=== PATIENT | female | born 1970 | race African-American/Black ===

== ENCOUNTER 2018-11-16 08:34 | Day surgery (SDC) | payer OTHER ==
[2018-11-15 16:27] VITALS: BMI 24.3
[2018-11-16] MEDS ORDERED: HYDROmorphone *PCA* 10MG/50ML DISP.SYRIN PCA ONE (14:01)
[2018-11-16] MEDS ORDERED: ONDANSETRON 4 MG/2 ML VIAL ONE (14:26)
[2018-11-16] MEDS: ONDANSETRON 4 MG/2 ML VIAL IVPUSH PRN (14:28)
[2018-11-16] MEDS ORDERED: SODIUM CHLORIDE 1,000 ML IV SCH ×2 (16:30→19:03)
[2018-11-16] MEDS ORDERED: HYDROmorphone *PCA* 10MG/50ML DISP.SYRIN PCA SCH (16:30)
[2018-11-16] MEDS ORDERED: amLODIPine BESYLATE 5 MG TABLET (FP) PO ONE ×2 (19:03→20:30)
--- NOTE | 2018-11-16 19:28 | RAPID ---
Physical Examination Vital Signs: Vital Signs Temperature 97.8 F 11/16/18 18:30 Pulse Rate 84 11/16/18 18:30 Respiratory Rate 20 11/16/18 18:30 Blood Pressure 174/120 H 11/16/18 18:30 O2 Sat by Pulse Oximetry (%) 100 11/16/18 18:30 Constitutional: Yes: Well Nourished Eyes: Yes: WNL HENT: Yes: WNL Neck: Yes: WNL Cardiovascular: Yes: WNL, Regular Rate and Rhythm Respiratory: Yes: WNL Gastrointestinal: Yes: WNL ...Rectal Exam: Yes: Deferred Breast(s): Yes: WNL Musculoskeletal: Yes: WNL Extremities: Yes: WNL Integumentary: Yes: WNL Wound/Incision: Yes: Clean/Dry Neurological: Yes: WNL ...Motor Strength: WNL Psychiatric: Yes: WNL Rapid Response - Rapid Response Assessment: Patient is a 45 year old female with a significant pat medical history of ectopic (2000) who is POD #0 of bilateral uterine arteries embolization and bilateral urine and right common femoral arteriogram. Per surgical note, patient tolerate procedure well and will be monitored overnight for pain control with a dilaudid die designer pump and anti emetics. Post procedure, patient experienced asymptomatic hypertension (bp 180/110) and a rapid response was called to further evaluate. plan: Hypertension, uncontrolled She denies headaches, visual defect, nausea or vomiting. no chest pain or shortness of breath. will order - Norvasc 5mg x 1 given - monitor bp q4 - decrease ivf to a KVO rate @ 30cc/hr since hypertensive - EKG now Monitor BP, may need uptitration of bp medications.
--- NOTE | 2018-11-16 19:28 | PN ---
Physical Exam: SUBJECTIVE: Patient seen and examined at the bedside. She denies headaches, denies any visual defects, no numbness or facial tingling. no nausea/vomiting. denies chest pain or shortness of breath. Tells me that she has been told that she has borderline hypertension, but not taking any medications at home. OBJECTIVE: Patient s/p fibroid embolization today. maintain on bed rest x 3 hours no bleeding noted on surgical pad. bp elevated 180s/110 with heart rate, and a rapid response called by primary RN. Repeat BP shows 168/100. patient remains asymptomatic. will give Norvasc 5mg times one and monitor response see rapid response note Vital Signs Period Temp Pulse Resp BP Sys/Bashir Pulse Ox Last 24 Hr 97.8 F-98.2 F 75-85 11-20 102-185/72-120 100-100 GENERAL: The patient is awake, alert, and fully oriented, in no acute distress. HEAD: Normal with no signs of trauma. EYES: PERRL, extraocular movements intact, sclera anicteric, conjunctiva clear. No ptosis. ENT: Ears normal, nares patent, oropharynx clear without exudates, moist mucous membranes. NECK: Trachea midline, full range of motion, supple. LUNGS: Breath sounds equal, clear to auscultation bilaterally, no wheezes, no crackles, no accessory muscle use. HEART: Regular rate and rhythm ABDOMEN: Soft, nontender, nondistended, normoactive bowel sounds, no guarding, no rebound, no hepatosplenomegaly, no masses. EXTREMITIES: no edema. NEUROLOGICAL: Normal speech, gait not observed. PSYCH: Normal mood, normal affect. 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 Per surgical note, patient tolerate procedure well and will be monitored overnight for pain control with a dilaudid consulting practice director pump and anti emetics. Post procedure, patient experienced asymptomatic hypertension and a rapid response was called to further evaluate. Surgery: POD #0 Bilateral uterine arteries embolization and bilateral urine and right common femoral arteriogram plan: - strict bed rest 3 hours - monitor surgical site - monitor surgical pads for signs of bleeding - remove mcdaniel once patient ambulatory - bowel regimen - pain management on dilaudid consulting practice director - transition to oral pain meds in a.m. Hypertension, uncontrolled She denies headaches, visual defect, nausea or vomiting - Norvasc 5mg x 1 given - monitor bp q4 -decrease ivf to a KVO rate @ 30cc/hr since hypertensive - EKG fen ivf 30cc/kvo while on dilaudid consulting practice director monitor electrolytes in a.m. regular diet prophy SCDs incentive spriometer early ambulation. full code Visit type - Emergency Visit Emergency Visit: No - New Patient This patient is new to me today: Yes Date on this admission: 11/16/18 - Critical Care Critical Care patient: No - Discharge Referral Referred to [facility] Med P.C.: No
[2018-11-17] MEDS ORDERED: amLODIPine BESYLATE 5 MG TABLET (FP) PO ONE (02:03)
[2018-11-17] MEDS ORDERED: ACETAMINOPHEN 325 MG TABLET (FP) PO ONE (04:15)
[2018-11-17] MEDS ORDERED: oxyCODONE HCL 5 MG TABLET PO ONE (04:15)
[2018-11-17 08:22] LABS: BASO % 0.2 % (0-2.0); EOS % 0.1 % (0-4.5); HEMATOCRIT 35.2 % (32.4-45.2); HEMOGLOBIN 11.3 GM/dL (10.7-15.3); LYMPH % 9.2 % (8-40); MCH 23.5 pg (25.7-33.7); MCHC 32.1 g/dl (32.0-36.0); MEAN CELL VOLUME 73.3 fl (80-96); MEAN PLT VOLUME 7.8 fl (7.5-11.1); MONO % 5.7 % (3.8-10.2); NEUT % 84.8 % (42.8-82.8); PLATELET COUNT 283 K/MM3 (134-434); RBC 4.81 M/mm3 (3.60-5.2); RDW 18.2 % (11.6-15.6); WHITE BLOOD COUNT 11.8 K/mm3 (4.0-10.0)
[2018-11-17] MEDS ORDERED: oxyCODONE HCL 5 MG TABLET PO PRN (08:43)
[2018-11-17 08:50] LABS: ALBUMIN 3.1 g/dl (3.4-5.0); ALK PHOS 86 U/L (45-117); ANION GAP 5 MMOL/L (8-16); BILIRUBIN,TOTAL 0.4 mg/dL (0.2-1); BLOOD UREA NITROGEN 9 mg/dL (7-18); CALCIUM 8.7 mg/dL (8.5-10.1); CHLORIDE 103 mmol/L (98-107); CO2 26 mmol/L (21-32); CREATININE 0.5 mg/dL (0.55-1.3); GLUCOSE,RANDOM 98 mg/dL (74-106); SGOT/AST 16 U/L (15-37); SGPT/ALT 12 U/L (13-61); SODIUM 135 mmol/L (136-145)
--- NOTE | 2018-11-17 09:02 | PN ---
Physical Exam: SUBJECTIVE: Patient seen and examined at the bedside. having some lower abdominal cramps, mild nausea this morning. Denies any headaches or visual defects. denies chest pain or shortness of breath. OBJECTIVE: Dr. Mir called this a.m., awaiting call back. in the meantime, made appt for patient to be seen at Dr. Mir office for a BP check. On November 30, at 2pm. Dr. Mir office will call her and try to get her an earlier appointment if there are any cancellations, and will attempt to see her earlier than November 30. ekg normal sinus rhythm, unchanged from previous bp noted to be elevated on prior admissions to [facility]. patient on no home medications for BP. Vital Signs Period Temp Pulse Resp BP Sys/Bashir Pulse Ox Last 24 Hr 97.8 F-98.9 F 73-89 10-20 102-185/76-120 96-100 GENERAL: The patient is awake, alert, and fully oriented, in no acute distress. HEAD: Normal with no signs of trauma. EYES: PERRL, extraocular movements intact, sclera anicteric, conjunctiva clear. No ptosis. ENT: Ears normal, nares patent, oropharynx clear without exudates, moist mucous membranes. NECK: Trachea midline, full range of motion, supple. LUNGS: Breath sounds equal, clear to auscultation bilaterally, no wheezes HEART: Regular rate and rhythm ABDOMEN: soft, non tender. non distended. EXTREMITIES: right groin dressing, dry and intact NEUROLOGICAL: Normal speech, gait not observed. PSYCH: Normal mood, normal affect. Laboratory Results - last 24 hr 11/16/18 11/17/18 11/17/18 08:49 07:30 07:30 WBC 11.8 H RBC 4.81 Hgb 11.3 Hct 35.2 D MCV 73.3 L MCH 23.5 L MCHC 32.1 RDW 18.2 H Plt Count 283 D MPV 7.8 Absolute Neuts (auto) 10.0 H Neutrophils % 84.8 H Lymphocytes % 9.2 D Monocytes % 5.7 Eosinophils % 0.1 Basophils % 0.2 Nucleated RBC % 0 Sodium 135 L Potassium 4.0 Chloride 103 Carbon Dioxide 26 Anion Gap 5 L BUN 9 Creatinine 0.5 L Creat Clearance w eGFR 132.83 Random Glucose 98 Calcium 8.7 Total Bilirubin 0.4 AST 16 ALT 12 L Alkaline Phosphatase 86 Total Protein 8.0 Albumin 3.1 L Urine HCG, Qual Negative Active Medications Generic Name Dose Route Start Last Admin Trade Name Willie PRN Reason Stop Dose Admin Acetaminophen 650 mg 11/17/18 07:45 Tylenol - PO Q4H PRN PAIN LEVEL 6-10 Amlodipine Besylate 10 mg 11/17/18 10:00 Norvasc - PO DAILY KATHY Diphenhydramine HCl 12.5 mg 11/16/18 16:29 Benadryl Injection - IVPUSH Q4H PRN PRURITUS Ondansetron HCl 4 mg 11/16/18 16:29 11/16/18 14:28 Zofran Injection IVPUSH 4 mg Q4H PRN Administration NAUSEA AND/OR VOMITING Oxycodone HCl 5 mg 11/17/18 08:43 Roxicodone - PO 11/18/18 08:42 Q4H PRN PAIN LEVEL 7 - 10 ASSESSMENT/PLAN: Patient is a 45 year old female with a significant pat medical history of ectopic (2000) who is POD #1 of bilateral uterine arteries embolization and bilateral uterine and right common femoral arteriogram. Per surgical note, patient tolerate procedure well and will be monitored for pain control. Post procedure, patient experienced asymptomatic hypertension and a rapid response was called to further evaluate. On review of her previous medical records, patient has had elevated BP in past visits to [facility]. She is not on any anti-hypertensives. 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 On no home medications. BP not yet at goal, increased Norvasc to 10mg from 5mg Monitor BP q 4 Stop IVF. EKG unchanged fen regular diet prophy SCDs incentive spriometer early ambulation. discharge patient later today if BP better controlled. full code Visit type - Emergency Visit Emergency Visit: No - New Patient This patient is new to me today: No - Critical Care Critical Care patient: No - Discharge Referral Referred to [facility] Med P.C.: No
[2018-11-17] MEDS: ACETAMINOPHEN 325 MG TABLET (FP) PO PRN ×3 (09:05→19:09)
[2018-11-17] MEDS ORDERED: amLODIPine BESYLATE 10 MG TABLET (FP) PO SCH (10:00)
[2018-11-17] MEDS ORDERED: amLODIPine BESYLATE 5 MG TABLET (FP) PO SCH (10:00)
[2018-11-17] MEDS ORDERED: PCA PUMP KEY 1 EACH EACH ONE (10:37)
[2018-11-17] MEDS: ONDANSETRON 4 MG/2 ML VIAL IVPUSH PRN (11:11)
[2018-11-17] MEDS ORDERED: LORazepam 0.5 MG TABLET PO ONE (11:33)
[2018-11-17] MEDS ORDERED: LISINOPRIL 10 MG TABLET (FP) PO ONE (13:01)
[2018-11-17 15:24] VITALS: TEMP 98.4
[2018-11-17 17:36] VITALS: BP 163/87; PULSE 105
--- NOTE | 2018-11-17 17:36 | DS ---
Physical Exam: SUBJECTIVE: Patient seen and examined at the bedside. BP is improving, she will have a VNS services to her home to monitor her BP, her new medications have been called into [facility]. In review of her old [facility] records, she has had episodes of hypertensioin in the past. She will be sent home on amlodopine 10mg and lisinopril 10mg with close follow up with her PCP. Appointment has been made for her. She will have VNS services for BP monitoring. OBJECTIVE: Vital Signs Period Temp Pulse Resp BP Sys/Bashir Pulse Ox Last 24 Hr 97.8 F-98.9 F 76-105 11-20 149-179/89-120 97-100 PHYSICAL EXAM GENERAL: The patient is awake, alert, and fully oriented, in no acute distress. HEAD: Normal with no signs of trauma. EYES: PERRL, extraocular movements intact, sclera anicteric, conjunctiva clear. No ptosis. ENT: Ears normal, nares patent, oropharynx clear without exudates, moist mucous membranes. NECK: Trachea midline, full range of motion, supple. LUNGS: Breath sounds equal, clear to auscultation bilaterally, no wheezes HEART: Regular rate and rhythm ABDOMEN: soft, non tender. non distended. EXTREMITIES: right groin dressing, dry and intact NEUROLOGICAL: Normal speech, gait not observed. PSYCH: Normal mood, normal affect. Laboratory Results - last 24 hr LABS Laboratory Results - last 24 hr 11/17/18 11/17/18 07:30 07:30 WBC 11.8 H RBC 4.81 Hgb 11.3 Hct 35.2 D MCV 73.3 L MCH 23.5 L MCHC 32.1 RDW 18.2 H Plt Count 283 D MPV 7.8 Absolute Neuts (auto) 10.0 H Neutrophils % 84.8 H Lymphocytes % 9.2 D Monocytes % 5.7 Eosinophils % 0.1 Basophils % 0.2 Nucleated RBC % 0 Sodium 135 L Potassium 4.0 Chloride 103 Carbon Dioxide 26 Anion Gap 5 L BUN 9 Creatinine 0.5 L Creat Clearance w eGFR 132.83 Random Glucose 98 Calcium 8.7 Total Bilirubin 0.4 AST 16 ALT 12 L Alkaline Phosphatase 86 Total Protein 8.0 Albumin 3.1 L HOSPITAL COURSE: Date of Admission:11/16/18 Date of Discharge: 05/03/19 Patient is a 45 year old female with a significant pat medical history of ectopic (2000) who is POD #1 of bilateral uterine arteries embolization and bilateral uterine and right common femoral arteriogram. Per surgical note, patient tolerate procedure well and will be monitored for pain control. Post procedure, patient experienced asymptomatic hypertension and a rapid response was called to further evaluate. On review of her previous medical records, patient has had elevated BP in past visits to [facility]. She is not on any anti-hypertensives. During hospitalization Amlodopine was titrated up to amlodopne 10mg daily and lisinopril was introduced for better BP control. She will be discharged with VNS services for BP monitoring and an appointment has been made for her to follow up with her PCP on November 30 (PCP office to call patient for an earlier appt. and they were informed of BP) Hospital Course by problem list: Surgery: POD #1 Bilateral uterine arteries embolization and bilateral uterine and right common femoral arteriogram surgical site intact, no evidence of bleeding mcdaniel removed and patient was able to void incentive spriometer encouraged For pain, Tylenol 650mg encouraged, but if pain is severe, oxycodone 10 pills called in for her. Hypertension, better controlled. She denies headaches, visual defect BP improved on amlodopine and lisinopril. last bp 160s/80s. VNS and PCP follow up appointments made. In review of records, patient has been hypertensive in past visits. On no home medications. BP not yet at goal but improved overall EKG unchanged discharge patient today as BP is better controlled. full code Minutes to complete discharge: 60 Discharge Summary Reason For Visit: UTERINE FIBROIDS Condition: Improved - Instructions Diet, Activity, Other Instructions: Mrs Dover: You had a uterine embolization with on 11/16/2018. Your blood pressure was elevated post procedure and we monitored you closely. Here are our recommendations: Elevated blood pressure: We have started you on: Lisinopril 10mg once per day and Amlodopine 10mg once per day. It is important that you continue taking these medications as ordered. We have referred you to a Visiting Nurse for close monitoring of your blood pressure. These medications may need to be adjusted going forward. We have also set up an appointment for your to see your PCP, Dr. Portillo on November 30. at 2pm. His office may call you for an earlier appointment. I have also called in a blood pressure cuff for your home use. Please take your blood pressure daily and record it in a book and show it to your PCP on your next visit. Pain: For pain, please take Tylenol 650mg over the counter as needed. I have called in a few pain pills for you to take every 8 hours as needed, but do not exceed 3 pills per day. Reasons to return to the ED: If you experience severe bleeding If you experience nausea/vomiting/diarrhea If you develop chest pain or shortness of breath. Thank you for allowing us to care for you. Victoria German [employer] [facility] [phone] Referrals: Lupillo Mohr MD [Staff Physician] - 1 Week Disposition: HOME - Home Medications Comprehensive Discharge Medication List: Ambulatory Orders Acetaminophen [Tylenol .Regular Strength -] 650 mg PO Q4H PRN #0 tablet Amlodipine Besylate [Norvasc -] 10 mg PO DAILY #30 tablet 11/17/18 Lisinopril [Prinivil] 10 mg PO DAILY #30 tablet 11/17/18 Ondansetron [Ondansetron Odt] 8 mg PO BID #7 tab.rapdis 11/17/18 oxyCODONE HCL [Roxicodone -] 5 mg PO Q8H PRN #10 tablet MDD 3 11/17/18 This patient is new to me today: No Emergency Visit: No Critical Care patient: No - Discharge Referral Referred to [facility] Med P.C.: No
[2018-11-18] MEDS ORDERED: LISINOPRIL 10 MG TABLET (FP) PO SCH (10:00)
--- NOTE | 2018-11-18 16:34 | EKG ---
Test Reason : Blood Pressure : / mmHG Vent. Rate : 073 BPM Atrial Rate : 073 BPM P-R Int : 176 ms QRS Dur : 090 ms QT Int : 388 ms P-R-T Axes : 041 019 012 degrees QTc Int : 427 ms NORMAL SINUS RHYTHM NORMAL ECG NO PREVIOUS ECGS AVAILABLE Confirmed by JOI HENSON, HARINDER ([id number]) on 11/18/2018 4:33:37 PM Referred By: Confirmed By:HARINDER TAMEZ MD
== END 2018-11-17 19:11 | disposition home or self-care (01) ==
LOC: SUATTDRO 08:34 → JASUSAT 08:34 → JRADIR 08:34 → J3W 18:22 → JASUSAT 11-17 19:11
PROVIDERS: ATTEND Nurse Practitioner Family
PROC: 04LF3DU Occlusion of Left Uterine Artery with Intraluminal Device, Percutaneous Approach (ICD-10-PCS; principal; 2018-11-16)
PROC: 04LE3DT Occlusion of Right Uterine Artery with Intraluminal Device, Percutaneous Approach (ICD-10-PCS; 2018-11-16)
DX: D25.9 Leiomyoma of uterus, unspecified (principal); N93.8 Other specified abnormal uterine and vaginal bleeding; N80.0 Endometriosis of uterus
CPT/HCPCS: 36415; 37243; 76000-TC-FY; 76937-TC; 80053; 84703; 85025; 93005; 93010; 94010; C1760; C1769; C1887; C1894; J7030